=== PATIENT | male | born 1990 | race Caucasian/White ===

== ENCOUNTER 2019-07-29 14:13 | Emergency (ER) | payer OTHER ==
[~2019-07-29] VITALS: Ht 167.6 cm; Wt 85.7 kg
[2019-07-29 14:17] VITALS: Ht 167.6 cm; Wt 85.7 kg
[2019-07-29 16:32] VITALS: BP 105/62
== END 2019-07-29 16:32 | disposition home or self-care (01) ==
LOC: ED 14:13
DX: K29.70 Gastritis, unspecified, without bleeding (principal); K92.0 Hematemesis